=== PATIENT | female | born 1950 | race African-American/Black ===

== ENCOUNTER 2021-04-03 18:08 | Emergency (ER) | payer OTHER ==
[~2021-04-03] VITALS: Ht 101.6 cm; Wt 86.2 kg
[2021-04-03] MEDS ORDERED: FORTAMET500 MG PO (18:16)
[2021-04-03] MEDS ORDERED: COZAAR50 MG PO (18:17)
[2021-04-03] MEDS ORDERED: KATERZIA1 MG/1 ML PO (18:17)
[2021-04-03] MEDS ORDERED: ALDACTAZIDE 251 EACH PO (18:18)
[2021-04-03] MEDS ORDERED: VITAMIN D210 MCG PO (18:18)
[2021-04-03] MEDS ORDERED: PANTOPRAZOLE SO20 MG PO (18:21)
[2021-04-03] MEDS ORDERED: SYNTHROID88 MCG PO (18:21)
[2021-04-03] MEDS ORDERED: KETO10TA2 PO ×2 (20:01→20:08)
[2021-04-03] MEDS ORDERED: NORFLEX100MG PO (20:01)
[2021-04-03] MEDS ORDERED: NEURONTIN300 MG PO (20:08)
== END 2021-04-03 20:14 | disposition home or self-care (01) ==
LOC: ER 18:08
DX: M54.5 Low back pain (principal)

== ENCOUNTER 2021-04-06 19:37 | Emergency (ER) | payer OTHER ==
[~2021-04-06] VITALS: Ht 160 cm; Wt 86.2 kg
[~2021-04-06 19:37] MED LIST: ALDACTAZIDE 251 EACH PO; COZAAR50 MG PO; FORTAMET500 MG PO; KATERZIA1 MG/1 ML PO; KETO10TA2 PO; NEURONTIN300 MG PO; NORFLEX100MG PO; PANTOPRAZOLE SO20 MG PO; SYNTHROID88 MCG PO; VITAMIN D210 MCG PO
[2021-04-07] MEDS ORDERED: BUDESONIDE0.5 MG/2 M IH ×2 (04:28→04:29)
[2021-04-07] MEDS ORDERED: ZYNCOF 20-400120 ML PO (04:28)
[2021-04-07] MEDS ORDERED: AMOX-CLAV 875-1 EACH PO (04:28)
[2021-04-07] MEDS ORDERED: ALBUTEROL2.5 MG/3 M IH (04:28)
== END 2021-04-07 04:39 ==
LOC: ER 19:37
DX: R50.9 Fever, unspecified (principal); U07.1 COVID-19

== ENCOUNTER 2021-04-10 10:07 | Inpatient (IN) | payer OTHER ==
[~2021-04-10] VITALS: Ht 154.9 cm; Wt 49.4 kg
[~2021-04-10 10:07] MED LIST changes: +ALBUTEROL2.5 MG/3 M IH; +AMOX-CLAV 875-1 EACH PO; +BUDESONIDE0.5 MG/2 M IH; +ZYNCOF 20-400120 ML PO
== END 2021-04-18 22:39 | disposition home or self-care (01) | DRG 177 ==
LOC: ER 10:07 → MEDJ 19:54
PROVIDERS: ADMIT Internal Medicine Cardiovascular Disease; ATTEND Internal Medicine Cardiovascular Disease
PROC: 4A033R1 Measurement of Arterial Saturation, Peripheral, Percutaneous Approach (ICD-10-PCS; principal; 2021-04-10)
PROC: BW25ZZZ Computerized Tomography (CT Scan) of Chest, Abdomen and Pelvis (ICD-10-PCS; 2021-04-10)
PROC: 3E0F7SF Introduction of Other Gas into Respiratory Tract, Via Natural or Artificial Opening (ICD-10-PCS; 2021-04-10)
PROC: XW033E5 Introduction of Remdesivir Anti-infective into Peripheral Vein, Percutaneous Approach, New Technology Group 5 (ICD-10-PCS; 2021-04-11)
PROC: 8E0ZXY6 Isolation (ICD-10-PCS; 2021-04-11)
PROC: 4A12X4Z Monitoring of Cardiac Electrical Activity, External Approach (ICD-10-PCS; 2021-04-11)
DX: U07.1 COVID-19 (principal); J12.82 Pneumonia due to coronavirus disease 2019; E11.9 Type 2 diabetes mellitus without complications; Z79.84 Long term (current) use of oral hypoglycemic drugs; E03.8 Other specified hypothyroidism; I10 Essential (primary) hypertension; Z20.822 Contact with and (suspected) exposure to COVID-19

== ENCOUNTER 2021-07-28 08:00 | Outpatient (CLI) | payer OTHER | END 2021-07-28 10:02 | disposition home or self-care (01) | LOC: MAMO-SONO 08:00 | PROVIDERS: ATTEND Emergency Medicine Pediatric Emergency Medicine | DX: R92.1 Mammographic calcification found on diagnostic imaging of breast (principal); N64.59 Other signs and symptoms in breast; Z12.31 Encounter for screening mammogram for malignant neoplasm of breast ==

== ENCOUNTER 2021-07-28 11:31 | Outpatient (CLI) | payer OTHER | END 2021-07-28 11:41 | disposition home or self-care (01) | LOC: MAMO-SONO 11:31 | PROVIDERS: ATTEND Internal Medicine Cardiovascular Disease | DX: N64.59 Other signs and symptoms in breast (principal); Z12.31 Encounter for screening mammogram for malignant neoplasm of breast ==

== ENCOUNTER 2021-12-01 15:02 | Outpatient (CLI) | payer OTHER | END 2021-12-01 15:03 | disposition home or self-care (01) | LOC: RAD 15:02 | PROVIDERS: ATTEND Internal Medicine Cardiovascular Disease | DX: M46.47 Discitis, unspecified, lumbosacral region (principal) ==